=== PATIENT | male | born 1975 | race Asian ===

== ENCOUNTER 2017-03-08 21:20 | Emergency (ER) | payer BC, OTHER ==
[~2017-03-08] VITALS: Ht 160 cm; Wt 70.3 kg
[2017-03-08] MEDS ORDERED: AMOX-358 PO (21:53)
--- NOTE | 2017-03-08 21:53 | ED EENT ---
History of Present Illness General Chief Complaint: Eye Problems Stated Complaint: CAT SCRATCH L EYE Nursing Triage Note: PT AMBULATED TO ROOM. PT STATES HIS CAT JUMPED UP ON HIM AND SCRATCHED HIS LEFT EYE. PT STATES HIS EYES WERE CLOSED WHEN THE CAT JUMPED UP, PT STATES NO BLURRY VISON AND NO LOSS DEFICIT. Source: patient Exam Limitations: no limitations History of Present Illness Time seen by provider: 21:49 Initial Comments to ER with a report of a cat scratch to the left eye. He was laying on his couch with his eyes closed at the time when his cat jumped on him. His eyelid was closed in the scratch or rather the 2 scratches R to the external surface of the left eyelid. There was no globe or corneal injury. No foreign body sensation or changes in vision. He is alarmed because he had a cat scratch in the remote past to the dorsal aspect of the left hand that became significantly swollen and infected. This particular scratch happened just prior to arrival. Tetanus is up-to-date. Timing/Duration: abrupt Severity: mild Location: eye (L) Associated Symptoms: denies symptoms Allergies and Home Medications Allergies Coded Allergies: No Known Drug Allergies (Unverified , 03/08/17) Review of Systems Constitutional: see HPI Eyes: See HPI Ears: No Symptoms Reported Nose: no symptoms reported Mouth: no symptoms reported Throat: no symptoms reported Respiratory: no symptoms reported Cardiovascular: no symptoms reported Musculoskeletal: no symptoms reported Skin: no symptoms reported Past Swkmeku-Cwptyr-Jiyoju Hx Patient Social History Alcohol Use: Denies Use Recreational Drug Use: No Smoking Status: Never a Smoker 2nd Hand Smoke Exposure: No Recent Foreign Travel: No Contact w/Someone Who Travel: No Recent Infectious Disease Expo: No Recent Hopitalizations: No Seasonal Allergies Seasonal Allergies: No Physical Exam Vital Signs Vital Sign - Last 12Hours 03/08/17 21:40 Temp 98.1 Pulse 72 Resp 20 B/P (MAP) 139/96 Pulse Ox 98 O2 Delivery Room Air General Appearance: WD/WN, no apparent distress Eyes: bilateral eye EOMI, bilateral eye PERRL, bilateral eye normal inspection , bilateral eye other (there are 2 linear scratches across the external surface of the left eyelid towards the bridge of the nose. No active bleeding. These are not full thickness and there is no injury to the conjunctival surface of the eyelid or globe injury.) Ears: bilateral ear TM normal, bilateral ear auricle normal, bilateral ear canal normal Mouth/Throat: normal mouth inspection, pharynx normal Neck: non-tender, full range of motion Neurologic/Psychiatric: alert, normal mood/affect, oriented x 3 Skin: normal color, warm/dry Progress/Results/Core Measures Results/Orders Vital Signs/I&O Vital Sign - Last 12Hours 03/08/17 21:40 Temp 98.1 Pulse 72 Resp 20 B/P (MAP) 139/96 Pulse Ox 98 O2 Delivery Room Air Blood Pressure Mean: 110 Departure Impression Impression: Primary Impression: Cat scratch of face Qualified Codes: S00.81XA - Abrasion of other part of head, initial encounter ; W55.03XA - Scratched by cat, initial encounter Disposition: HOME, SELF-CARE Condition: Stable Departure-Patient Inst. Decision time for Depature: 21:51 Referrals: DANIELE AGUIRRE DO (PCP/Family) Primary Care Physician Patient Instructions: CAT BITE Add. Discharge Instructions: 1. Antibiotics as directed 2. Return to the emergency room for any worsening swelling or redness or see your regular doctor. All discharge instructions reviewed with patient and/or family. Voiced understanding. Scripts Amoxicillin/Potassium Clav (Augmentin 875-125 Tablet) 1 Each Tablet 1 EACH PO BID, #10 TAB Prov: ALEJANDRO OSPINA APRN 03/08/17 Copy Copies To 1: DANIELE AGUIRRE PETER J APRN Mar 08, 2017 21:53
[2017-03-08] MEDS ORDERED: AUGMENTIN 875 MG TAB (AMOXICILLIN/CLAVULANATE) PO SCH (22:00)
[2017-03-08 22:06] VITALS: BP 139/96
== END 2017-03-08 22:06 | disposition home or self-care (01) ==
LOC: EDUNIT# 21:20 → ER 21:21
DX: S00.212A Abrasion of left eyelid and periocular area, initial encounter (principal); W55.01XA Bitten by cat, initial encounter
CPT/HCPCS: 99282